=== PATIENT | female | born 1935 | race Caucasian/White ===

== ENCOUNTER → 2016-07-09 19:22 | Outpatient (CLI) | payer MEDICARE, OTHER ==
[2015-10-15 17:54] VITALS: BMI 25.9
[~2016-07-09 19:22] MED LIST: ALEVE220 MG PO; ASPIRIN EC81 M1 PO; BACTROBAN NASAL1 GM NASAL; BAYER CHEWABLE81 MG PO; CALCIUM 500 + D1 TAB PO; DIOVAN HCT 160/1 TAB PO; ELIQUIS2.5 MG PO; GABAPENTIN100 MG PO; GLUCOSAMINE & C1 CAP PO; METOPROLOL TART50 MG PO; OXYCODONE HCL5 MG PO; THEREMS-M1 TAB PO; ZOCOR20 MG PO
== END | disposition home or self-care (01) ==
LOC: D.LABREF 19:22
DX: M17.11 Unilateral primary osteoarthritis, right knee (principal); Z11.8 Encounter for screening for other infectious and parasitic diseases

== ENCOUNTER 2016-07-23 09:00 | Inpatient (IN) | payer MEDICARE, OTHER ==
[~2016-07-23] VITALS: Ht 154.9 cm; Wt 63.6 kg
[2016-07-23 08:30] LABS: BASOPHILS 0.8 % (0.0-2.0); EOSINOPHILS 2.9 % (0-7); HEMATOCRIT 39.4 % (36.0-48.0); HEMOGLOBIN 12.5 g/dL (12-16); IMMATURE GRANULOCYTES 0.2 % (0-5); LYMPHOCYTES 33.7 % (15-50); MCH 30.7 pg (26.0-34.0); MCHC 31.7 g/dL (31.0-37.0); MCV 96.8 fL (80.0-100.0); MEAN PLATELET VOLUME 9.8 fL (7.4-10.4); MONOCYTES 5.2 % (2-11); NEUTROPHILS 57.2 % (40-80); PLATELET COUNT 286 10x3/uL (130-400); RBC 4.07 10x6/uL (4.00-5.40); RDW 12.7 % (11.5-14.5)
[2016-07-23 08:34] LABS: ANION GAP 11.4 mmol/L (8-16); CALCIUM 9.3 mg/dL (8.5-10.1); CARBON DIOXIDE 31.7 mmol/L (21.0-32.0); CREATININE - SERUM 1.2 mg/dL (0.6-1.3); INR 1.12 (0.85-1.17); POTASSIUM - SERUM 4.1 mmol/L (3.5-5.1); PROTIME 14.3 SECONDS (11.6-15.0)
[2016-07-23 08:35] LABS: APTT 39.1 SECONDS (22.8-39.4)
[2016-07-23 08:43] LABS: APPEARANCE HAZY (CLEAR); BILIRUBIN NEGATIVE (NEGATIVE); COLOR STRAW (YELLOW); GLUCOSE NEGATIVE (NEGATIVE); KETONE NEGATIVE (NEGATIVE); LEUKOCYTE ESTERASE NEGATIVE (NEGATIVE); NITRITE NEGATIVE (NEGATIVE); PH 6.5 (5.0-6.0); PROTEIN NEGATIVE (NEGATIVE); UROBILINOGEN NORMAL (NORMAL)
[~2016-07-23 09:00] MED LIST changes: -ELIQUIS2.5 MG PO
[2016-07-28] VITALS (12 sets, daily range): BP systolic 107–154; BP diastolic 42–77; Ht 154.9 cm; Wt 63.6 kg
--- NOTE | 2016-07-28 12:10 | NUR ---
RECEIVED TO ROOM 2212 VIA BED FROM PACU. A/O X3. NO C/O PAIN AT THIS TIME. DRESSING TO RIGHT KNEE DRY AND INTACT. DENIES NEEDS.
--- NOTE | 2016-07-28 14:00 | NUR ---
VSS. REFUSED OFFER OF LUNCH TRAY. DENIES NEEDS.
--- NOTE | 2016-07-28 15:32 | NUR ---
RESTING QUIETLY IN BED. DENIES NEEDS. VSS.
--- NOTE | 2016-07-28 17:59 | NUR ---
ATE ALMOST ALL OF SUPPER. VOIDED 300cc CLEAR YELLOW URINE IN BEDPAN. CPM IN PLACE AT THIS TIME. NO CHANGES NOTED. DENIES NEEDS. FAMILY AT BEDSIDE.
--- NOTE | 2016-07-28 18:46 | NUR ---
RESTING QUIETLY IN BED WITH CPM IN PLACE. FAMILY AT BEDSIDE. NO CHANGES NOTED AT THIS TIME.
--- NOTE | 2016-07-28 19:10 | NUR ---
RECIEVED SHIFT REPORT. PT IS LYING IN BED. ALERT AND ORIENTED AND ABLE TO VERBALIZE NEEDS. IV IS PATENT AND FLUIDS ARE RUNNING PER ORDER. SCD'S ON. CPM ON AT THIS TIME. DRESSING TO RIGHT KNEE C/D/I. PT DENIES ANY PAIN AT THIS TIME. NO NEEDS ARE VERBALIZED AT THIS TIME. WILL CONTINUE TO MONITOR. VISITOR AT BEDSIDE. SIDE RAILS ARE UP X 2. BED IS IN LOWEST POSITION. BED ALARM IS ON FOR SAFETY. CALL LIGHT IS WITHIN REACH.
--- NOTE | 2016-07-28 20:52 | NUR ---
SHIFT ASSESSMENT COMPLETED. NIGHT MEDS GIVEN WITH NO PROBLEMS. CPM MACHINE REMOVED. PT ASSISTED ON AND OFF BED MURILLO. NO FURTHER NEEDS AT THIS TIME. WILL MONITOR. SIDE RAILS X 2. BED LOW. BED ALARM ON. CALL LIGHT IN REACH.
[2016-07-29 01:00] VITALS: BP 98/45
[2016-07-29 05:00] VITALS: BP 122/56
[2016-07-29 05:56] LABS: BASOPHILS 0.1 % (0.0-2.0); EOSINOPHILS 0 % (0-7); HEMATOCRIT 30.5 % (36.0-48.0); HEMOGLOBIN 9.9 g/dL (12-16); IMMATURE GRANULOCYTES 0.2 % (0-5); MCH 30.9 pg (26.0-34.0); MCHC 32.5 g/dL (31.0-37.0); MCV 95.3 fL (80.0-100.0); MEAN PLATELET VOLUME 10.1 fL (7.4-10.4); MONOCYTES 6.8 % (2-11); NEUTROPHILS 79.9 % (40-80); PLATELET COUNT 233 10x3/uL (130-400); RDW 12.5 % (11.5-14.5); WBC 12.5 10x3/uL (4.8-10.8)
[2016-07-29 06:21] LABS: CALCIUM 7.9 mg/dL (8.5-10.1); CARBON DIOXIDE 25.7 mmol/L (21.0-32.0); CREATININE - SERUM 1.4 mg/dL (0.6-1.3); POTASSIUM - SERUM 3.7 mmol/L (3.5-5.1)
--- NOTE | 2016-07-29 06:42 | CN ---
PATIENT NAME:FLOYD BRICE MEDICAL RECORD: [id number] : 39 LOCATION:[facility] ADMIT DATE: 07/28/16 ACCOUNT: [id number] CONSULTING PHYSICIAN: FATMATA BERRIOS MD REFERRING PHYSICIAN: DANDRE KELSEY MD DATE OF CONSULTATION: 07/28/2016 DATE OF ADMISSION: 07/28/2016 REASON FOR CONSULTATION: Medical management. HISTORY OF PRESENT ILLNESS: Ms. Brice is a 81-year-old female, who had complaining of pain in her right knee. She had been evaluated in my office on the 25 of June of this year. 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 She was referred to Dr. Kelsey for possible replacement. PAST MEDICAL HISTORY: Significant that she has had history of having hypertension. She has had a hysterectomy and bilateral salpingo-oophorectomy. She had a left knee replacement. She has had breast biopsies in the past and appendectomy. She is a . She had a history of having hyperlipidemia, renal calculi and numerous bladder infections. FAMILY HISTORY: Significant for father had a CVA. Sister had malignant breast CA. Mother, hypertensive disorder. Mother also had a myocardial infarction. SOCIAL HISTORY: The patient educated through the 12th grade. She is retired. She is . Former smoker, stopped in 1967. She denies any ethanol use or abuse. She was born in [place], [place]. MEDICATIONS: Include gabapentin 100 mg 1 p.o. t.i.d., hydrocodone 7.5/325 one every 4 hours p.r.n. severe pain, metoprolol 50 mg 1 p.o. q. day, nabumetone 500 mg 2 tabs p.o. q. day, simvastatin 20 mg 1 p.o. q. day, and valsartan 160/12.5 hydrochlorothiazide one p.o. q. day. ALLERGIES: WILVER INHIBITORS. REVIEW OF SYSTEMS: CONSTITUTIONAL: She denies any headaches, seizure or syncope. She denies change in visual or auditory acuity. PULMONARY: She denies any shortness of breath, cough, congestion, history of ____. CARDIOVASCULAR: She had no chest pain, palpitation, PND or orthopnea. GASTROINTESTINAL: No chronic nausea, vomiting, melena or hematochezia. GENITOURINARY: No urgency, frequency, or dysuria. PHYSICAL EXAMINATION: GENERAL: The patient is postop. She is having no pain at the present time. She has a MUSIC WORKER present. VITAL SIGNS: Her blood pressure is 144/77, her pulse is 71, pulse ox 93% on room air, and respiration is 18. HEENT: Head is normocephalic. No lesions. Ears: TMs clear. Eyes: Pupils are equal, round and reactive to light. Her extraocular movements are intact. Her nasal cavity, oral cavity and oropharynx clear. NECK: Supple. There is no adenopathy. HEART: Has regular rhythm. No murmurs, gallops or rubs. CONSULT REPORT [id number] FLOYD BRICE LUNGS: Clear. ABDOMEN: Soft, bowel sounds positive. No organomegaly. GENITAL: Deferred. RECTAL: Deferred. EXTREMITIES: The patient has a dressing, which is dry and intact over the right knee. She has had a partial replacement in the past. LABORATORY DATA: The patient's white count is 9, hemoglobin 12.5, hematocrit is 39.4, and platelets are 286. She had a preoperative sodium 144, potassium 4.1, chloride 105, CO2 of 31.7, BUN is 18 and creatinine is 1.2. Urinalysis is unremarkable. INR 1.12. Preoperative chest x-ray shows no cardiomegaly, no active infiltrate. ASSESSMENT: 1. Status post right total knee replacement. 2. Hypertension. 3. Hyperlipidemia. PLAN: We will be glad to follow along with you. Continue orthopedic pathways. We will check CBC as well as BMP in a.m. TRANSINT:[id number] Voice Confirmation ID: [id number] DOCUMENT ID: [id number] FATMATA BERRIOS MD at 0642 CC: [id number] DICTATION DATE: 07/28/16 173 SHOP SERVICE TECHNICIAN: 07/28/16 2344 ADM IN [id number] [place] [address]
--- NOTE | 2016-07-29 07:20 | NUR ---
AWAKE AND ALERT. ORIENTED X3. NO C/O AT THIS TIME. CPM IN PLACE TO RIGHT KNEE. SCD'S ON LEFT LEG. LUNGS ARE CLEAR BILATERALLY, NO COUGH NOTED. REPORTS USED IS INSTRUCTED. SKIN IS INTACT WTIHOUT REDNESS EXCEPT INCISION TO RIGHT KNEE WHICH HAS A DRY INTACT DRESSING IN PLACE. DENIES NEEDS. IV TO LEFT HAND PATENT WITHOUT REDNESS AT INSERTION SITE.
[2016-07-29 08:00] VITALS: BP 102/42
--- NOTE | 2016-07-29 10:00 | NUR ---
SITTING UP IN CHAIR PER PT. DENIES NEEDS.
--- NOTE | 2016-07-29 12:15 | NUR ---
SITTING UP AT BEDSIDE EATING LUNCH. NO C/O AT THIS TIME.
[2016-07-29 12:30] VITALS: BP 107/38
--- NOTE | 2016-07-29 13:51 | NUR ---
* Is the patient Alert and Oriented? Yes 0 * How many steps to enter\exit or inside your home? 3 0 * PCP Dr. Bill 0 * Pharmacy [facility] by the track 0 * Preadmission Environment Home with Family 0 * ADLs Independent 0 * Equipment Cane Rolling Walker Shower Chair 0 * List name and contact numbers for known caregivers / representatives who currently or will assist patient after discharge: Spouse - Cody [phone] * Additional services required to return to the preadmission environment? Yes 0 * Can the patient safely return to the preadmission environment? Yes 0 * Has this patient been hospitalized within the prior 30 days at any hospital? No 07/29/2016 13:51 DCP: Discharge Planning Patient Name: FLOYD WALKER Admission Status: Elective Accout number: [id number] Admission Date: 07-28-2016 : 1935 Admission Diagnosis:UNILATERAL PRIMARY OSTEOARTHRITIS, RIGHT KNEE Attending: MARGE Current LOS: 1 Anticipated DC Date: 07-30-2016 Planned Disposition: Outpatient PT\OT Primary Insurance: MEDICARE A & B Discharge Planning Comments: CM met with patient to assess dc plans/needs. Patient states she lives at home with her , Cody. She reports she is independent with all ADL's & IADL's. She has a rolling walker, shower chair, & cane at home. She has chosen to go to [facility] - Rx faxed. Appt. scheduled 07/31 @ 1115. Anticipate DC 07/30. CM will follow.
--- NOTE | 2016-07-29 15:00 | NUR ---
RESTING QUIETLY IN BED WATCHING TV. NO C/O
[2016-07-29 16:02] VITALS: BP 105/40
--- NOTE | 2016-07-29 18:00 | NUR ---
ATE MOST OF SUPPER. CPM IN PLACE AT THIS TIME. FAMILY AT BEDSIDE. NO CHANGES NOTED. DENIES NEEDS.
--- NOTE | 2016-07-29 19:00 | NUR ---
PATIENT SUPINE IN BED ON CPM. HOB 30 DEGREES. AAOX4. RR EVEN AND UNLABORED. 0 S/S OF DISTRESS. STATES PAIN IS AN 8/10. IV TO LEFT WRIST S/L WITH NO REDNESS OR SWELLING. DRESSING TO RIGHT KNEE CDI. B/A ON. SRX2. BED LOW. CALL LIGHT WITHIN REACH.
--- NOTE | 2016-07-29 21:30 | NUR ---
PATIENT OFF CPM. ASSESSMENT COMPLETE. NIGHTTIME MEDS GIVEN. OXY IR GIVEN FOR PAIN. WILL REASSESS.
[2016-07-29 22:09] VITALS: BP 116/42
[2016-07-30 01:48] VITALS: BP 137/60
--- NOTE | 2016-07-30 03:05 | NUR ---
PATIENT STATES PAIN IS A 10/10. 10MG OXY IR GIVEN.
[2016-07-30 05:35] LABS: BASOPHILS 0.2 % (0.0-2.0); EOSINOPHILS 1.2 % (0-7); HEMATOCRIT 29.8 % (36.0-48.0); HEMOGLOBIN 9.6 g/dL (12-16); IMMATURE GRANULOCYTES 0.3 % (0-5); MCH 30.7 pg (26.0-34.0); MCHC 32.2 g/dL (31.0-37.0); MCV 95.2 fL (80.0-100.0); MEAN PLATELET VOLUME 10.3 fL (7.4-10.4); MONOCYTES 7.8 % (2-11); NEUTROPHILS 77.5 % (40-80); PLATELET COUNT 194 10x3/uL (130-400); RBC 3.13 10x6/uL (4.00-5.40); RDW 12.9 % (11.5-14.5); WBC 9.8 10x3/uL (4.8-10.8)
[2016-07-30 06:08] LABS: ANION GAP 10.9 mmol/L (8-16); CARBON DIOXIDE 28.8 mmol/L (21.0-32.0); CREATININE - SERUM 1.4 mg/dL (0.6-1.3); POTASSIUM - SERUM 3.7 mmol/L (3.5-5.1)
--- NOTE | 2016-07-30 07:20 | NUR ---
ALERT AND ORIENTED AT THIS TIME. CPM TO RIGHT KNEE ON AND IN WORKING ORDER. SCD'S ON AND IN WORKING ORDER AT THIS TIME. DENIES NEEDS AT PRESENT. CALL LIGHT IN REACH, WILL CONTINUE WITH PLAN OF CARE.
[2016-07-30 08:28] VITALS: BP 144/66
--- NOTE | 2016-07-30 08:51 | NUR ---
07/30/2016 8:47 DCP: Discharge Planning Anticipate DC tomorrow - OP PT appt. rescheduled for 08/04 @ 3888. No other needs identified or verbalized at this time. CM will follow.
--- NOTE | 2016-07-30 09:15 | NUR ---
SCHEDULED MEDICATIONS ADMINISTERED AT THIS TIME WITHOUT DIFFICULTY. ADMINISTERED PRN OXY IR 10MG FOR PAIN 7/10 INCISIONALLY AT THIS TIME. CALL LIGHT IN REACH AND REMAINS UP IN CHAIR. WILL CONTINUE WITH PLAN OF CARE.
--- NOTE | 2016-07-30 11:05 | NUR ---
REMAINS UP IN A CHAIR AT THIS TIME. CALL LIGHT IN REACH AND PT DENIES NEEDS. WILL CONTINUE WITH PLAN OF CARE.
--- NOTE | 2016-07-30 11:07 | NUR ---
UP TO BEDSIDE COMMODE WITH PHSYICAL THERAPY ASSISTANCE AT THIS TIME. LINENS CHANGED FOR INCONTINENT EPISODE OF URINE AT THIS TIME. WILL CONTINUE WITH PLAN OF CARE.
[2016-07-30 12:04] VITALS: BP 139/55
--- NOTE | 2016-07-30 13:05 | NUR ---
IN BED AT THIS TIME PER PHYSICAL THERAPY. BED ALARM ON AND SCD'S OFF PER PT REQUEST. SR X2 WITH BED IN LOWEST POSITION AND WHEELS LOCKED. CALL LIGHT IN REACH, WILL CONTINUE WITH PLAN OF CARE.
--- NOTE | 2016-07-30 15:05 | NUR ---
PT ASSISTED UP TO BATHROOM X1 STANDBY ASSIST AND WALKER. VOIDED WITHOUT DIFFICULTY. ASSISTED BACK TO BED AND SCD'S ON, WELL BED ALARM. CALL LIGHT IN REACH, WILL CONTINUE WITH PLAN OF CARE.
[2016-07-30 15:48] VITALS: BP 155/49
--- NOTE | 2016-07-30 17:15 | NUR ---
PRN OXY-IR ADMINISTERED AT THIS TIME FOR PAIN 11/07. SCD'S AND BED ALARM ON. PT EATING DINNER AT THIS TIME. CALL LIGHT IN REACH, WILL CONTINUE WITH PLAN OF CARE.
--- NOTE | 2016-07-30 19:00 | NUR ---
PATIENT IN BED ON CPM. HOB 30 DEGREES. AAOX4. RR EVEN AND UNLABORED. 0 S/S OF DISTRESS. STATES PAIN IS A 3/10. IV TO LEFT WRIST SL WITH NO REDENSS OR SWELLING. BANDAGE TO RIGHT KNEE CDI. SCD'S ON. B/A ON. SRX2. BED LOW. CALL LIGHT WITHIN REACH.
--- NOTE | 2016-07-30 22:00 | NUR ---
ASSISTED PATIENT TO BATHROOM AND BACK TO BED. NIGHTTIME MEDS GIVEN. OXY IR GIVEN FOR PAIN. NO OTHER NEEDS AT THIS TIME.
--- NOTE | 2016-07-31 04:33 | NUR ---
PATIENT SLEEPING WITH NO DISTRESS NOTED. CALL LIGHT WITHIN REACH.
[2016-07-31 04:45] LABS: BASOPHILS 0.2 % (0.0-2.0); EOSINOPHILS 2.4 % (0-7); HEMATOCRIT 29.4 % (36.0-48.0); HEMOGLOBIN 9.5 g/dL (12-16); IMMATURE GRANULOCYTES 0.1 % (0-5); LYMPHOCYTES 19.7 % (15-50); MCH 31.3 pg (26.0-34.0); MCHC 32.3 g/dL (31.0-37.0); MCV 96.7 fL (80.0-100.0); MEAN PLATELET VOLUME 10.3 fL (7.4-10.4); MONOCYTES 9.4 % (2-11); NEUTROPHILS 68.2 % (40-80); PLATELET COUNT 200 10x3/uL (130-400); RBC 3.04 10x6/uL (4.00-5.40)
[2016-07-31 05:21] LABS: ANION GAP 9.6 mmol/L (8-16); CALCIUM 8.1 mg/dL (8.5-10.1); CREATININE - SERUM 1.1 mg/dL (0.6-1.3); POTASSIUM - SERUM 3.6 mmol/L (3.5-5.1)
--- NOTE | 2016-07-31 07:53 | NUR ---
PT RECEIVED SITTING UP IN BED VISITING WITH VISITORS. PT ALERT AND ORIENTED X4. LUNG SOUNDS CLEAR BILATERALLY. BOWEL SOUNDS ACTIVE IN ALL FOUR QUADRANTS. ABD SOFT AND NONTENDER UPON PALPATION. STATES LAST BM WAS ON WEDNESDAY. DENIES ABD PAIN OR DISCOMFORT. PT STATES, "I NORMALLY GO EVERY 3 DAYS OR SO." CPM CURRENTLY IN USE. PT DENIES NEEDS AT THIS TIME. CALL LIGHT IN REACH.
[2016-07-31 08:03] VITALS: BP 136/55
--- NOTE | 2016-07-31 08:40 | NUR ---
LYING IN BED AT THIS TIME. FAMILY AT BEDSIDE. CALL LIGHT IN REACH, WILL CONTINUE WITH PLAN OF CARE.
[2016-07-31] MEDS ORDERED: ELIQUIS2.5 MG PO (08:48)
[2016-07-31] MEDS ORDERED: OXYCODONE HCL5 MG PO (08:49)
--- NOTE | 2016-07-31 11:09 | NUR ---
PT RECEIVED DISCHARGE INSTRUCTIONS. PT VERBALIZED UNDERSTANDING. DRSG TO KNEE CHANGED, NO REDNESS OR DRAINAGE NOTED TO INCISION, HERBER INTACT. PT NOTED TO TOUCH PROXIMAL END OF INCISION. EDUCATED PT ON KEEPING INCISION CLEAN. PT VERBALIZED UNDERSTANDING.
--- NOTE | 2016-07-31 12:26 | NUR ---
07/31/2016 12:27 DCP: Discharge Planning Patient Name: FLOYD WALKER Encounter No: [id number] : 1935 Primary Insurance: MEDICARE A & B Anticipated DC Date: 07-31-2016 Planned Disposition: Outpatient PT\OT External Planned Provider: : DCP follow-up note: DC order rec'd. Patient and family in agreement with discharge plan. No changes to plan. Case management will follow and assist as needed. [place]
--- NOTE | 2016-08-02 10:16 | OP ---
PATIENT NAME: FLOYD WALKER MEDICAL RECORD: [id number] :[birth year] LOCATION:[facility] ADMISSION DATE:07/28/16 SURGEON: DANDRE KELSEY MD DATE OF OPERATION: 07/28/2016 PREOPERATIVE DIAGNOSIS: Right knee degenerative joint disease. POSTOPERATIVE DIAGNOSIS: Right knee degenerative joint disease. PROCEDURE PERFORMED: Right total knee arthroplasty. SURGEON: Nikolay Kelsey MD. ANESTHESIA: General with a block for postop pain. TOURNIQUET TIME: 38 minutes. ESTIMATED BLOOD LOSS: Minimal. CONDITION: She tolerated the procedure well, was transferred to the recovery room in stable condition at the termination of the procedure. INDICATIONS: This is a pleasant 81-year-old female with advanced degenerative changes of her knee. She no longer tolerating this, wanted to proceed with a total knee arthroplasty. We discussed risks, benefits, and alternatives. She understood and wished to proceed. OPERATIVE REPORT: The patient was taken to the operating room and placed in supine position. General anesthesia was obtained. Her right knee was confirmed to be the correct knee. It was prepped and draped in the standard fashion. This was followed by secondary ChloraPrep and then Ioban dressing placement. Tourniquet was elevated after exsanguination with an Jovany wrap. This was followed by a midline incision. A medial parapatellar incision was made. At this juncture, it was noted that she had very little cartilage at all remaining on her knee. Once this was accomplished, I then removed the fat pad, elevated the medial soft tissue sleeve and I then drilled into the femur. Following which, I placed a guide and made a distal femoral cut. After the distal femoral cut was established, I sized as a 62.5 and made the rest of the distal femoral cuts. The tibia was subluxed forward. I then proceeded to place the guide and make a proximal tibial cut. After this cut, I places a 62.5 femur with the 67 tibia and took the knee through range of motion and marked the rotation. Once the rotation was marked, I then went back, it was indeed a 67, I prepped and punched for a 67 tibia. I took off the back side of the patella, measured it for a 31 and drilled the 3 peg holes for the patella. Once this was accomplished, I then copiously irrigated the knee. Following which, I cemented into place a 62.5 femur, 67 tibia with a 12 poly trial and a 31 three-peg hole patellar button. The leg was held in extension until the cement dried. The cement was then removed and following which, the knee was copiously irrigated again and then the final 12 poly was placed. She was very stable in flexion and extension. I then proceeded to irrigate again and following which, I closed the retinaculum with the #1 barbed PDS suture and then closed with 2-0 Vicryl and kirby. She was placed in soft dressing, awakened and transferred to the recovery room in stable condition at termination of procedure. She did get a 1 dose of TXA at the end of the case and all sponge and needle counts were reported as correct. OPERATIVE REPORT [id number] FLOYD WALKER TRANSINT:[id number] Voice Confirmation ID: [id number] DOCUMENT ID: [id number] DANDRE KELSEY MD at 1016 CC: [id number] DICTATION DATE: 07/28/16 1140 SENIOR TRIAL ATTORNEY: 07/28/16 192 DIS IN 07/31/16 [facility] [address] [place] [address]
--- NOTE | 2016-08-28 12:12 | DS ---
PATIENT:FLOYD WALKER :[birth year] MEDICAL RECORD: [id number] DISCHARGE SUMMARY ADMISSION DATE: 07/28/16 DISCHARGE DATE: 07/31/16 DATE OF ADMISSION: 07/28/2016. DATE OF DISCHARGE: 07/31/2016. ADMITTING DIAGNOSIS: Right knee degenerative joint disease. DISCHARGE DIAGNOSES: Right knee degenerative joint disease plus acute blood loss anemia. HISTORY OF PRESENT ILLNESS: This is a very pleasant 81-year-old female with significant degenerative changes. She came into the hospital and underwent a right total knee arthroplasty. She did well with her procedure. She progressed nicely. It was felt by the 3rd, she could be discharged to home self care, continuing post-total knee arthroplasty protocols and Eliquis for anticoagulation therapy, pain meds with the plan to see us back in the office in about 10-14 days. DISCHARGE DIAGNOSES: 1. Right knee degenerative joint disease. 2. Postop acute blood loss anemia. PLAN: To see us in 2 weeks. TRANSINT:[id number] Voice Confirmation ID: [id number] DOCUMENT ID: [id number] DANDRE ADLER MD at 1212 CC: [id number] DICTATION DATE: 08/18/16 1431 AUTOMATIC PUNCH PRESS OPERATOR: 08/19/16 0430 DIS IN 07/31/16 [address] [place] [address]
== END 2016-07-31 11:16 | disposition home or self-care (01) | DRG 470 ==
LOC: D.MS 07-28 06:38 → D.SDCHOLD 07-28 06:38 → D.MS 07-28 11:58
PROVIDERS: Family Medicine; ADMIT Orthopaedic Surgery Sports Medicine
PROC: 0SRC0J9 Replacement of Right Knee Joint with Synthetic Substitute, Cemented, Open Approach (ICD-10-PCS; principal; 2016-07-28 08:45)
DX: M17.11 Unilateral primary osteoarthritis, right knee (principal); D62 Acute posthemorrhagic anemia; I10 Essential (primary) hypertension; E78.5 Hyperlipidemia, unspecified

== ENCOUNTER 2016-12-29 07:51 | Outpatient (CLI) | payer MEDICARE, OTHER ==
[2016-07-28 12:14] VITALS: BMI 26.5
[~2016-12-29 07:51] MED LIST changes: +ELIQUIS2.5 MG PO
== END 2016-12-29 11:31 ==
LOC: D.MAMMO 07:51
DX: Z12.31 Encounter for screening mammogram for malignant neoplasm of breast (principal)

== ENCOUNTER → 2018-02-22 19:16 | Outpatient (CLI) | payer MEDICARE, OTHER ==
[2016-07-28 12:14] VITALS: BMI 26.5
== END | disposition home or self-care (01) ==
LOC: D.MAMMO 14:15
DX: Z12.31 Encounter for screening mammogram for malignant neoplasm of breast (principal)

== ENCOUNTER 2018-03-09 08:00 | Outpatient (CLI) | payer MEDICARE ==
[2016-07-28 12:14] VITALS: BMI 26.5
== END 2018-03-09 09:00 | disposition home or self-care (01) ==
LOC: D.MAMMO 08:00
DX: R92.8 Other abnormal and inconclusive findings on diagnostic imaging of breast (principal)

== ENCOUNTER 2019-03-21 08:00 | Outpatient (CLI) | payer MEDICARE ==
[2016-07-28 12:14] VITALS: BMI 26.5
== END 2019-03-21 23:59 | disposition home or self-care (01) ==
LOC: D.MAMMO 08:00
PROVIDERS: ATTEND Family Medicine
DX: Z12.31 Encounter for screening mammogram for malignant neoplasm of breast (principal)